=== PATIENT | male | born 1945 | race Caucasian/White ===

== ENCOUNTER 2017-06-02 20:30 | Outpatient (CLI) | payer MEDICARE | END 2017-06-02 20:31 | disposition home or self-care (01) | LOC: SLEEPLAB 20:30 | PROVIDERS: ATTEND Internal Medicine Pulmonary Disease | DX: G47.33 Obstructive sleep apnea (adult) (pediatric) (principal); E66.9 Obesity, unspecified; R06.83 Snoring; I25.10 Atherosclerotic heart disease of native coronary artery without angina pectoris; G47.00 Insomnia, unspecified | CPT/HCPCS: 95811 ==

== ENCOUNTER 2017-09-13 20:39 | Emergency (ER) | payer MEDICARE ==
[2017-09-13] MEDS ORDERED: Lidocaine 1% w/Epinephrine 1:100K 20 ML VIAL ONE (21:49)
== END 2017-09-13 22:20 | disposition home or self-care (01) ==
LOC: ERS 20:39
DX: L02.31 Cutaneous abscess of buttock (principal); I25.10 Atherosclerotic heart disease of native coronary artery without angina pectoris; I25.2 Old myocardial infarction; E78.5 Hyperlipidemia, unspecified; I10 Essential (primary) hypertension; F17.220 Nicotine dependence, chewing tobacco, uncomplicated; Z79.899 Other long term (current) drug therapy; Z79.82 Long term (current) use of aspirin
CPT/HCPCS: 10060; 87070; 87077; 87186; 87205; J2001

== ENCOUNTER 2017-09-15 16:30 | Emergency (ER) | payer MEDICARE | END 2017-09-15 17:50 | disposition home or self-care (01) | LOC: ERS 16:30 | DX: Z48.817 Encounter for surgical aftercare following surgery on the skin and subcutaneous tissue (principal); E78.5 Hyperlipidemia, unspecified; F17.220 Nicotine dependence, chewing tobacco, uncomplicated; I10 Essential (primary) hypertension; I25.10 Atherosclerotic heart disease of native coronary artery without angina pectoris; I25.2 Old myocardial infarction | CPT/HCPCS: 99282 ==

== ENCOUNTER 2018-06-12 12:03 | Emergency (ER) | payer MEDICARE ==
[2018-06-12] MEDS ORDERED: Adacel (T-DAP) 0.5 ML SYRINGE ONE (12:30)
== END 2018-06-12 12:59 | disposition home or self-care (01) ==
LOC: ERS 12:03
DX: L03.011 Cellulitis of right finger (principal); E78.5 Hyperlipidemia, unspecified; I10 Essential (primary) hypertension; F17.220 Nicotine dependence, chewing tobacco, uncomplicated; I25.10 Atherosclerotic heart disease of native coronary artery without angina pectoris; I25.2 Old myocardial infarction
CPT/HCPCS: 90471; 90715

== ENCOUNTER 2018-06-14 10:40 | Emergency (ER) | payer MEDICARE ==
[2018-06-14] MEDS ORDERED: Bacitracin Zinc 1 Packet ONE (11:37)
== END 2018-06-14 12:05 | disposition home or self-care (01) ==
LOC: ERS 10:40
DX: L03.011 Cellulitis of right finger (principal); I25.10 Atherosclerotic heart disease of native coronary artery without angina pectoris; I25.2 Old myocardial infarction; E78.5 Hyperlipidemia, unspecified; I10 Essential (primary) hypertension; F17.220 Nicotine dependence, chewing tobacco, uncomplicated
CPT/HCPCS: 26010

== ENCOUNTER 2018-08-03 19:13 | Inpatient (IN) | payer MEDICARE ==
[2018-08-03 19:58] LABS: Hemoglobin 13.2 g/dL (14.0-18.0); Mean Corpuscular HGB CONC 32.3 g/dL (32.0-36.0); Mean Corpuscular Hemoglobin 29.5 pg (27.0-31.0); Mean Corpuscular Volume 91.2 fL (78.0-98.0); Mean Platelet Volume 7.7 fL (7.4-10.4); Platelet Count 196 thou/uL (130-400); RBC Distribution Width 12.8 % (11.5-14.5); Red Blood Cell (RBC) Count 4.48 mill/uL (4.70-6.10); White Blood Cell (WBC) Count 29.6 thou/uL (4.8-10.8)
[2018-08-03 20:10] LABS: Band 18 % (5-11); Lymphocytes 7 % (21-51); MDiff Complete? YES; Monocytes 4 % (0-10); Neutrophil 71 % (42-75); Platelet Morphology Comment Appears Adequate; RBC Morphology Normal; Toxic Granulation SLIGHT; Vacuoles SLIGHT
--- NOTE | 2018-08-03 20:15 | RAD ---
FRadiograph chest one view: 08/03/2018 at 8:05 PM HISTORY: 73-year-old male with nausea and chest pain COMPARISON: 10/25/2014 FINDINGS: There is a new dense focal airspace opacity at the medial right lung base. Again noted are the sterno sameer wires. No cardiomegaly or pulmonary edema. No pneumothorax. IMPRESSION: Dense focal right lower lobe infiltrate is evidence for right lower lobe pneumonia.
[2018-08-03 20:16] LABS: ALT (SGPT) 21 U/L (8-55); AST (SGOT) 18 U/L (5-34); Albumin 3.6 g/dL (3.4-4.8); Alkaline Phosphatase 97 U/L (40-150); Anion Gap 14 mmol/L (10-20); BUN (Urea Nitrogen) 28 mg/dL (8.4-25.7); Bilirubin, Total 1.1 mg/dL (0.2-1.2); Calc. Creatinine Clearance 0 mL/min (70-130); Calcium 9.7 mg/dL (7.8-10.44); Carbon Dioxide 26 mmol/L (23-31); Chloride 95 mmol/L (98-107); Estimated GFR-MDRD 28; Glucose 138 mg/dL (83-110); Potassium 3.8 mmol/L (3.5-5.1); Protein, Total 7.6 g/dL (5.8-8.1); Sodium 131 mmol/L (136-145)
[2018-08-03 20:43] LABS: INR-International Normal Ratio 1.4; PTT 34.1 SEC (22.9-36.1); Prothrombin Time 17.6 SEC (12.0-14.7)
[2018-08-03 21:24] LABS: CKMB 1.5 ng/mL (0-6.6)
[2018-08-03] MEDS ORDERED: Azithromycin 500 MG VIAL ONE (21:41)
[2018-08-03] MEDS ORDERED: cefTRIAXone\\ROCEPHIN 2 GM VIAL ONE (21:41)
[2018-08-03] MEDS ORDERED: Sodium Chloride 0.9% 100 ML ONE (21:41)
[2018-08-03] MEDS: Sodium Chloride 0.9% 1,000 ML IV SCH (22:00)
[2018-08-03 22:22] LABS: Bilirubin Small (Negative); Blood, Urine Small (Negative); Clarity CLOUDY (Clear); Glucose, Urine (Dipstick) Negative (Negative); Leukocyte Negative (Negative); Nitrite Negative (Negative); Protein, Urine (Dipstick) 100 mg/dL (Neg-Trace); Specific Gravity, Urine 1.021 (1.002-1.036)
[2018-08-03] MEDS ORDERED: Aspirin Chewable 81 MG TAB ONE (22:22)
[2018-08-03 22:24] LABS: Pathc Cast-AUWi Flag 14.14 (0-2.49); RBC/HPF 0-3 HPF (0-3); Squamous Epithelial 0-3 HPF (0-3)
[2018-08-03 22:33] LABS: Other Casts/LPF 7-10 COARSE GRAN LPF (0-3 Hyaline)
[2018-08-03 22:34] LABS: Bacteria/HPF 1+ HPF (None Seen); Renal Epithelial 0-3 HPF (0-3)
[2018-08-03] MEDS ORDERED: Ondansetron PF 4 MG/2 ML Vial IVP PRN (22:49)
[2018-08-03] MEDS ORDERED: Bisacodyl 10 MG SUPP PR PRN (22:49)
[2018-08-03] MEDS ORDERED: Senokot S 8.6-50 MG TAB PO PRN (22:49)
[2018-08-03] MEDS ORDERED: Ondansetron ODT 4 MG TAB PO PRN (22:49)
[2018-08-03] MEDS ORDERED: Acetaminophen 325 MG TAB PO PRN (22:49)
[2018-08-03] MEDS ORDERED: HYDROcodone/Acetaminophen 5/325 mg Tablet PO PRN (22:49)
[2018-08-03 23:38] LABS: Critical Call Chem Troponin I RESULT DECREASING; Troponin I 0.745 ng/mL (< 0.028)
--- NOTE | 2018-08-04 01:52 | HP ---
PRIMARY CARE PHYSICIAN: Shravan Sheth MD. DATE OF SERVICE: 08/03/2018 REASON FOR ADMISSION: Sepsis, right lower lobe pneumonia, NSTEMI type 2, and [id number]-[id number] kidney failure. HISTORY OF PRESENT ILLNESS: A 73-year-old male who has underlying history of morbid obesity with sleep apnea, coronary artery disease required CABG, who presented to emergency room with complaint of nausea, vomiting, diarrhea, fever, and vague abdominal discomfort that lasted for only 1 day and subsequently diarrhea subsided. He was having cough productive of scant amount of sputum without any hemoptysis. He was also having some pleuritic discomfort, particularly on the right side and he was also pointing right-sided abdominal pain which was related with respiration. The patient was also feeling generalized weakness. He also fell down at home without any loss or incomplete consciousness. His condition was deteriorated and that is why he decided to go to emergency room for evaluation. When I saw this patient in the emergency room, the patient was hemodynamically stable, but he was having cough. He did not have any further nausea, vomiting, diarrhea since he arrived to ER. At home, he was having pleuritic chest discomfort, dizziness, and he fell down today. REVIEW OF SYSTEMS: CONSTITUTIONAL: Negative for weight loss or gain, ability to conduct usual activities. SKIN: Negative for rash, itching. EYES: Negative for double vision, pain. ENT/MOUTH: Negative for nose bleeding, neck stiffness, pain, tenderness. CARDIOVASCULAR: Negative for palpitations, dyspnea on exertion, orthopnea. RESPIRATORY: Negative for shortness of breath, wheezing, cough, hemoptysis, fever or night sweats. GASTROINTESTINAL: Negative for poor appetite, abdominal pain, heartburn, nausea , vomiting, constipation, or diarrhea. GENITOURINARY: Negative for urgency, frequency, dysuria, nocturia. MUSCULOSKELETAL: Negative for pain, swelling. NEUROLOGIC/PSYCHIATRIC: Negative for anxiety, depression. ALLERGY/IMMUNOLOGIC: Negative for skin rash, bleeding tendency. Please see my HPI for pertinent positives and negatives. All other review of systems reviewed and negative except as mentioned in HPI. ALLERGIES: NO KNOWN DRUG ALLERGIES. CURRENT HOME MEDICATIONS: The patient did not bring his home medication and he does not know the name of medication. PAST MEDICAL HISTORY: Morbid obesity, obstructive sleep apnea on CPAP, coronary artery disease with history of CABG, hypertension, and dyslipidemia. PAST SURGICAL HISTORY: CABG x3. PAST PSYCHIATRIC HISTORY: Reviewed and negative. SOCIAL HISTORY: The patient chews tobacco. He denies any smoking. He denies any alcohol abuse. He denies any other illicit drug abuse. FAMILY HISTORY: No family history of coronary artery disease, stroke, or cancer. EMERGENCY ROOM COURSE: The patient received Rocephin, azithromycin, 2 L IV fluid, and aspirin. PHYSICAL EXAMINATION: VITAL SIGNS: On arrival, blood pressure 100/66, pulse 86, respiratory rate 17, temperature 97.8, saturation 94% on room air. Weight 114.3 kg. GENERAL: The patient is currently alert, awake. No obvious acute distress. HEENT: Head; normocephalic, atraumatic. Eyes; pupils round, reactive to light. Extraocular muscle intact. ENT: Oropharynx within normal limits. Moist mucous membranes. No oral lesion. No pharyngeal erythema. No exudate. NECK: Supple. No JVD. No thyromegaly. No carotid bruit. LUNGS: Right lower lobe basal rales. No wheezing. No rhonchi. No accessory muscles of respiration in use. CARDIAC: S1, S2 regular without any significant murmur. ABDOMEN: Obesity present. Bowel sounds present. Nontender. Nondistended. No organomegaly. No mass. No suprapubic tenderness. BACK: Unremarkable. No CVA tenderness. EXTREMITIES: Upper extremity, passive movement of all joints are normal. Lower extremity, no edema. Good distal pulsation. No calf tenderness. SKIN: No skin rash. HEMATOLOGICAL SYSTEM: No lymphadenopathy. PSYCHIATRIC: Normal affect. SIGNIFICANT LABORATORY DATA: EKG showing premature ventricular complex. Chest x-ray based on my review, dense focal right lower lobe infiltrate consistent with right lower lobe pneumonia. CBC; WBC 29.6, hemoglobin 13.6, platelet 196 with bandemia. INR 1.4. BMP; sodium 131, potassium 3.8, chloride 95, BUN 28, creatinine 2.28, glucose 138, calcium 9.7. LFT; AST 18, ALT 21, alkaline phosphatase 97, albumin 3.6. CK 127, CK-MB 1.5, troponin 0.917. Urinalysis; 1+ bacteria, hyaline and granular cast. ASSESSMENT AND PLAN: 1. Sepsis with acute organ dysfunction. The patient has leukocytosis with bandemia. Source of infection is right lower lobe pneumonia. He has associated azkyp-wa-tggymer kidney failure and ubn-ZA-fuqujhsph myocardial infarction type 2. The patient is already given broad-spectrum antibiotic therapy for pneumonia. He will be given gentle IV fluid as well. He will be monitored on telemetry floor. 2. Gzxgh-ql-agojwxh kidney failure, baseline chronic kidney disease stage 3. Continue NS at 100 mL/h and repeat BMP tomorrow. Watch for any fluid overload status. 3. Yfq-LN-ooqdwplux myocardial infarction, type 2. The patient does not have any real anginal pain. His pain is a chest pain which is pleuritic related with pneumonia. His EKG is not showing any acute ischemic changes. Echocardiography will be obtained. Cardiology will be consulted and we will continue with aspirin 325 mg p.o. daily. 4. History of coronary artery disease with history of coronary artery bypass graft. As mentioned above, Cardiology is consulted. We will verify his home medication and resume while in hospital as tolerated. 5. Morbid obesity with obstructive sleep apnea. The patient will have continuous CPAP machine while sleep while in hospital. 6. Right lower lobe pneumonia. This patient has focal consolidation in right lower lobe. Based on appropriate clinical scenario, it is most likely infectious etiology. We will consult Pulmonary as well. He is already on Rocephin and levofloxacin based on renal dose. The patient will need repeat imaging. We will also check respiratory virus panel, Legionella urinary antigen test, and a Streptococcus pneumonia urinary antigen test. Blood culture is already obtained. 7. Deep venous thrombosis prophylaxis, heparin 5000 units subcu 3 times daily. 8. Gastrointestinal prophylaxis. Pepcid 20 mg p.o. daily. 9. Code status. The patient is full code. The patient does not have any surrogate decision maker. DISPOSITION PLAN: Based on clinical course, we are expecting the patient's stay in hospital more than 2 midnights. Plan of care discussed with the patient in detail. Job ID: [id number] [facility]
[2018-08-04 02:07] LABS: Hemoglobin 13.8 g/dL (14.0-18.0); Mean Corpuscular HGB CONC 32.3 g/dL (32.0-36.0); Mean Corpuscular Hemoglobin 29.2 pg (27.0-31.0); Mean Corpuscular Volume 90.3 fL (78.0-98.0); Platelet Count 173 thou/uL (130-400); RBC Distribution Width 12.8 % (11.5-14.5); Red Blood Cell (RBC) Count 4.72 mill/uL (4.70-6.10); White Blood Cell (WBC) Count 23.4 thou/uL (4.8-10.8)
[2018-08-04 02:24] LABS: Band 9 % (5-11); Lymphocytes 2 % (21-51); MDiff Complete? YES; Neutrophil 89 % (42-75); Platelet Morphology Comment Appears Adequate; RBC Morphology Normal
[2018-08-04 02:29] LABS: ALT (SGPT) 21 U/L (8-55); AST (SGOT) 16 U/L (5-34); Albumin 3.6 g/dL (3.4-4.8); Alkaline Phosphatase 100 U/L (40-150); Anion Gap 19 mmol/L (10-20); BUN (Urea Nitrogen) 30 mg/dL (8.4-25.7); Bilirubin, Total 0.8 mg/dL (0.2-1.2); Calc. Creatinine Clearance 0 mL/min (70-130); Calcium 9.2 mg/dL (7.8-10.44); Carbon Dioxide 21 mmol/L (23-31); Chloride 97 mmol/L (98-107); Critical Call Chem Troponin I RESULT DECREASING; Estimated GFR-MDRD 32; Glucose 120 mg/dL (83-110); Potassium 3.8 mmol/L (3.5-5.1); Protein, Total 7.6 g/dL (5.8-8.1); Sodium 133 mmol/L (136-145); Troponin I 0.623 ng/mL (< 0.028)
[2018-08-04] MEDS: Famotidine 20 MG TAB PO SCH (10:55)
[2018-08-04] MEDS: guaiFENesin ER 600 MG TAB PO SCH ×2 (10:55→20:14)
[2018-08-04] MEDS: Saccharomyces boulardii 250 MG CAP PO SCH (10:55)
[2018-08-04] MEDS: Aspirin 325 MG TAB PO SCH (10:56)
[2018-08-04] MEDS: Heparin 5,000 UNITS/ML VIAL SC SCH ×3 (10:57→20:14)
[2018-08-04] MEDS: Sodium Chloride 0.9% 1,000 ML IV SCH ×2 (10:57→20:11)
[2018-08-04 15:27] VITALS: BMI 37.2
[2018-08-04] MEDS: cefTRIAXone\\ROCEPHIN 1 GM in Sodium Chloride 0.9% 100 ML IVPB SCH (20:12)
--- NOTE | 2018-08-04 20:24 | PDOC.PN ---
- Subjective Encounter Start Date: 08/04/18 Encounter Start Time: 10:45 Patient seen and examined for Sepsis. Dry cough +. No new complaints. No overnight events - Objective Resuscitation Status - Order Detail: 08/03/18 22:43 Resuscitation Status Routine Resuscitation Status: FULL: Full Resuscitation MAR Reviewed: Yes Vital Signs & Weight: Vital Signs (12 hours) Temp Pulse Resp BP Pulse Ox 08/04/18 18:25 87 20 97 08/04/18 17:33 97 08/04/18 15:21 97.7 F 89 22 H 138/70 97 08/04/18 13:36 98 22 H 96 Weight Weight 245 lb Result Diagrams: 08/05/18 07:30 08/05/18 07:30 EKG Reviewed by me: Yes (Tele SR) Phys Exam - Physical Examination Constitutional: NAD Respiratory: no wheezing RLL improving Cardiovascular: RRR, no rub Gastrointestinal: soft, non-tender, positive bowel sounds Musculoskeletal: no edema Neurological: moves all 4 limbs Dx/Plan - Plan DVT proph w/SCDs 1. Sepsis with acute organ dysfunction due to Pneumonia ?Pneumococcal 2. KENNY on CKD 3 3. Type 2 PR 4. CAD s/p CABG 5. MYA 6. Obesity BMI 37.3 PLAN: Cont IV Ceftriaxone/Levaquin Cont ASA Cont current meds as below AM labs Review of Systems - Review of Systems Respiratory: Cough, Dry. negative: Shortness of Breath, Hemoptysis, SOB with Excertion, Pleuritic Pain, Sputum, Wheezing Cardiovascular: negative: chest pain, palpitations, orthopnea, paroxysmal nocturnal dyspnea, edema, light headedness, other Gastrointestinal: negative: Nausea, Vomiting, Abdominal Pain, Diarrhea, Constipation, Melena, Hematochezia, Other Genitourinary: negative: Dysuria, Frequency, Incontinence, Hematuria, Retention , Other - Medications/Allergies Allergies/Adverse Reactions: Allergies Allergy/AdvReac Type Severity Reaction Status Date / Time No Known Drug Allergies Allergy Verified 08/04/18 15:20 Medications: Current Medications Acetaminophen (Tylenol) 650 mg PO Q4H PRN PRN Reason: Headache/Fever/Mild Pain (1-3) Hydrocodone Bitart/Acetaminophen ([place] 5/325) 1 tab PO Q4H PRN PRN Reason: Moderate Pain (4-6) Albuterol/Ipratropium (Duoneb) 3 ml NEB [id number] [facility] Last Admin: 08/04/18 18:25 Dose: 3 ml Aspirin (Aspirin) 325 mg PO DAILY [facility] Last Admin: 08/04/18 10:56 Dose: 325 mg Bisacodyl (Dulcolax) 10 mg [place] DAILYPRN PRN PRN Reason: Constipation Famotidine (Pepcid) 20 mg PO DAILY [facility] Last Admin: 08/04/18 10:55 Dose: 20 mg Guaifenesin (Mucinex) 600 mg PO Q12HR [facility] Last Admin: 08/04/18 20:14 Dose: 600 mg Heparin Sodium (Porcine) (Heparin) 5,000 units SC TID [facility] Last Admin: 08/04/18 20:14 Dose: 5,000 units Levofloxacin 750 mg/ Device 150 mls @ 100 mls/hr IVPB Q2DAYS [facility] Last Admin: 08/04/18 02:22 Dose: 150 mls Ceftriaxone Sodium 1 gm/ (Sodium Chloride) 100 mls @ 200 mls/hr IVPB Q24HR [facility] Last Admin: 08/04/18 20:12 Dose: 100 mls Sodium Chloride (Normal Saline 0.9%) 1,000 mls @ 100 mls/hr IV .Q10H [facility] Last Admin: 08/04/18 20:11 Dose: Not Given Ondansetron HCl (Zofran Odt) 4 mg PO Q6H PRN PRN Reason: Nausea/Vomiting Ondansetron HCl (Zofran) 4 mg IVP Q6H PRN PRN Reason: Nausea/Vomiting Saccharomyces Boulardii (Florastor) 250 mg PO DAILY [facility] Last Admin: 08/04/18 10:55 Dose: 250 mg Senna/Docusate Sodium (Senokot S) 2 tab PO BIDPRN PRN PRN Reason: Constipation Sodium Chloride (Flush - Normal Saline) 10 ml IVF Q12HR [facility] Last Admin: 08/04/18 20:14 Dose: 10 ml Sodium Chloride (Flush - Normal Saline) 10 ml IVF PRN PRN PRN Reason: Saline Flush
--- NOTE | 2018-08-05 00:19 | CON ---
DATE OF CONSULTATION: HISTORY OF PRESENT ILLNESS: Min Amaya is a 73-year-old white male, patient of Dr. Mills. In 2007, he underwent CABG x3 with LEONARD to the LAD and saphenous vein graft to the intramyocardial ramus and the right acute marginal. In general, he has done well since that time. He was last seen by Dr. Mills in December 2017 and was asymptomatic. He now comes to the emergency room complaining of 2 to 3 days of nausea, vomiting, diarrhea, and fever. He also has had cough that is nonproductive. He became so weak at home that he fell down. He was found to have elevated white count and abnormal troponin I, is admitted for further evaluation. He denies any chest discomfort. PAST MEDICAL HISTORY: Obesity, obstructive sleep apnea, coronary artery disease, hypertension, hyperlipidemia. MEDICATIONS: 1. Atorvastatin 20 daily is the only medication listed. When he was last seen in the office, he was on, 1. Aspirin 81 daily. 2. Plavix 75 daily. 3. Irbesartan 150 daily. 4. Amlodipine 10 daily. 5. Triamterene/hydrochlorothiazide 37.5/25 daily. 6. Metoprolol 25 daily. 7. Hydralazine 10 mg b.i.d. ALLERGIES: NONE. SOCIAL HISTORY: He used to snuff. FAMILY HISTORY: Negative for coronary artery disease. REVIEW OF SYSTEMS: A 10-point review of systems is, otherwise, unremarkable. PHYSICAL EXAMINATION: VITAL SIGNS: Blood pressure 138/70, pulse of 89. HEENT: PERRL. NECK: Supple. CHEST: Clear. CARDIAC: S1 and S2 normal without any S3, S4, or murmurs. ABDOMEN: Normal bowel sounds without tenderness. Abdomen is obese. EXTREMITIES: Revealed no clubbing, cyanosis, or edema. NEUROLOGICAL: Grossly intact. LABORATORY DATA: EKG revealed normal sinus rhythm with PACs. No acute changes. On admission, white cells 29,600, hemoglobin 13.2, hematocrit 40.9, platelets 196,000, INR 1.4. Sodium 133, potassium 3.8, chloride 97, carbon dioxide 21, BUN 30, creatinine 2.07. Troponin I 0.917. CK-MB 1.5. Chest x-ray reveals right lower lobe infiltrate. IMPRESSION: 1. Sepsis with right lower lobe infiltrate. 2. Acute on chronic kidney disease. 3. Demand ischemia from renal insufficiency. 4. Status post coronary artery bypass graft x3. 5. Obesity. PLAN: The patient currently is being treated with antibiotics. Echocardiogram has been ordered. The last echocardiogram in the office revealed ejection fraction of 55% to 60% in November 2017. Job ID: [id number]
[2018-08-05] MEDS: Sodium Chloride 0.9% 1,000 ML IV SCH (04:59)
[2018-08-05 07:58] LABS: #Lymphocytes 1.6 thou/uL (1.20-3.40); #Monocytes 0.9 thou/uL (0.11-0.59); #Neutrophils 10.8 thou/uL (1.40-6.50); %Basophils 0.1 % (0.0-1.0); %Eosinophils 0.3 % (0.0-10.0); %Lymphocytes 11.8 % (21.0-51.0); %Monocytes 6.4 % (0.0-10.0); %Neutrophils 81.4 % (42.0-75.0); Hemoglobin 12.3 g/dL (14.0-18.0); Mean Corpuscular HGB CONC 31.6 g/dL (32.0-36.0); Mean Corpuscular Hemoglobin 28.8 pg (27.0-31.0); Mean Corpuscular Volume 91.2 fL (78.0-98.0); Mean Platelet Volume 8.2 fL (7.4-10.4); Platelet Count 207 thou/uL (130-400); RBC Distribution Width 12.9 % (11.5-14.5); Red Blood Cell (RBC) Count 4.26 mill/uL (4.70-6.10); White Blood Cell (WBC) Count 13.3 thou/uL (4.8-10.8)
[2018-08-05 08:10] LABS: Anion Gap 13 mmol/L (10-20); BUN (Urea Nitrogen) 31 mg/dL (8.4-25.7); Calc. Creatinine Clearance 70 mL/min (70-130); Calcium 8.8 mg/dL (7.8-10.44); Carbon Dioxide 23 mmol/L (23-31); Chloride 105 mmol/L (98-107); Estimated GFR-MDRD 45; Glucose 103 mg/dL (83-110); Potassium 3.5 mmol/L (3.5-5.1); Sodium 137 mmol/L (136-145)
--- NOTE | 2018-08-05 08:56 | PDOC.CTH ---
Cardiology Progress Note - Subjective Feels much better. Fells like he is back to BL - Objective Vital Signs Temp Pulse Resp BP BP Pulse Ox 08/05/18 07:33 97.9 F 87 20 141/67 H 95 08/05/18 07:15 80 20 92 L 08/05/18 04:00 97.7 F 86 18 109/54 L 95 08/04/18 23:04 99 24 H 96 Weight 245 lb 08/04/18 08/05/18 08/06/18 06:59 06:59 06:59 Intake Total 1346 Output Total 650 Balance 696 - Physical Examination General/Neuro: alert & oriented x3, NAD Lungs: CTA, unlabored respirations Heart: PMI normal, RRR Abdomen: NT/ND, soft Extremities: + femoral B - Labs Result Diagrams: 08/05/18 07:30 08/05/18 07:30 Troponin/CKMB CK-MB (CK-2) 1.5 ng/mL (0-6.6) 08/03/18 19:46 Troponin I 0.623 ng/mL (< 0.028) H* 08/04/18 01:57 - Assessment/Plan Type II MO CAD s/p CABG Sepsis RI Pt doing well. No cv complaints.
--- NOTE | 2018-08-05 08:59 | PDOC.CTH ---
Cardiology Progress Note - Subjective Pt doing well. No complaints. Feels back to BL - Objective Vital Signs Temp Pulse Resp BP BP Pulse Ox 08/05/18 07:33 97.9 F 87 20 141/67 H 95 08/05/18 07:15 80 20 92 L 08/05/18 04:00 97.7 F 86 18 109/54 L 95 08/04/18 23:04 99 24 H 96 Weight 245 lb 08/04/18 08/05/18 08/06/18 06:59 06:59 06:59 Intake Total 1346 Output Total 650 Balance 696 - Physical Examination General/Neuro: alert & oriented x3, NAD Neck: carotid US brisk, no JVD present Lungs: CTA, unlabored respirations Heart: PMI normal, RRR Abdomen: NT/ND, soft Extremities: + femoral B - Telemetry Telemetry Rhythm: RRR - Labs Result Diagrams: 08/05/18 07:30 08/05/18 07:30 Troponin/CKMB CK-MB (CK-2) 1.5 ng/mL (0-6.6) 08/03/18 19:46 Troponin I 0.623 ng/mL (< 0.028) H* 08/04/18 01:57 - Assessment/Plan Type II [place] Sepsis RI CAD s/p CABG Treat conservatively Increase troponin secondary to volume contraction, RI and recent infection Stop heparin On ASA Add BB, statin Continue Abx Fu with me in office in 3-4 weeks
[2018-08-05] MEDS ORDERED: Aspirin 325 MG TAB PO SCH (09:00)
[2018-08-05] MEDS: Saccharomyces boulardii 250 MG CAP PO SCH ×2 (09:33→09:37)
[2018-08-05] MEDS: Aspirin 325 MG TAB PO SCH (09:33)
[2018-08-05] MEDS: guaiFENesin ER 600 MG TAB PO SCH ×2 (09:37→21:30)
[2018-08-05] MEDS: Clopidogrel Bisulfate 75 MG TAB PO SCH (09:37)
[2018-08-05] MEDS: Aspirin Chewable 81 MG TAB PO SCH (09:37)
[2018-08-05] MEDS: Famotidine 20 MG TAB PO SCH (09:37)
[2018-08-05] MEDS: hydrALAZINE 10 MG TAB PO SCH ×2 (11:13→21:30)
--- NOTE | 2018-08-05 12:12 | PDOC.PN ---
- Subjective Encounter Start Date: 08/05/18 Encounter Start Time: 10:40 Patient seen and examined for Sepsis. Feeling better. No CP. No new complaints. No overnight events - Objective Resuscitation Status - Order Detail: 08/03/18 22:43 Resuscitation Status Routine Resuscitation Status: FULL: Full Resuscitation MAR Reviewed: Yes Vital Signs & Weight: Vital Signs (12 hours) Temp Pulse Resp BP BP Pulse Ox 08/05/18 11:10 98.6 F 82 16 132/63 94 L 08/05/18 07:33 97.9 F 87 20 141/67 H 95 08/05/18 07:15 80 20 92 L 08/05/18 04:00 97.7 F 86 18 109/54 L 95 Weight Admit Weight 245 lb Weight 245 lb I&O: 08/04/18 08/05/18 08/06/18 06:59 06:59 06:59 Intake Total 1346 Output Total 650 Balance 696 Result Diagrams: 08/05/18 07:30 08/05/18 07:30 EKG Reviewed by me: Yes (Tele SR) Phys Exam - Physical Examination Constitutional: NAD Respiratory: no wheezing Rales/rhonchi at Rt base Cardiovascular: RRR, no rub Gastrointestinal: soft, non-tender, positive bowel sounds Musculoskeletal: no edema Neurological: moves all 4 limbs Dx/Plan - Plan DVT proph w/SCDs 1. Sepsis with acute organ dysfunction due to Pneumonia ?Pneumococcal 2. KENNY on CKD 3 3. Type 2 AR 4. CAD s/p CABG 5. MYA 6. Obesity BMI 37.3 PLAN: Cont IV Ceftriaxone/Levaquin Home meds reviewed and started Cont ASA/Plavix/Toprol/Statins Resume ARB DC IVF Resume Amlodipine in 1-2 days Cont other meds as below AM labs Ambulate Review of Systems - Review of Systems Respiratory: Cough. negative: Dry, Shortness of Breath, Hemoptysis, SOB with Excertion, Pleuritic Pain, Sputum, Wheezing Cardiovascular: negative: chest pain, palpitations, orthopnea, paroxysmal nocturnal dyspnea, edema, light headedness, other Gastrointestinal: negative: Nausea, Vomiting, Abdominal Pain, Diarrhea, Constipation, Melena, Hematochezia, Other - Medications/Allergies Allergies/Adverse Reactions: Allergies Allergy/AdvReac Type Severity Reaction Status Date / Time No Known Drug Allergies Allergy Verified 08/04/18 15:20 Medications: Current Medications Acetaminophen (Tylenol) 650 mg PO Q4H PRN PRN Reason: Headache/Fever/Mild Pain (1-3) Hydrocodone Bitart/Acetaminophen ([place] 5/325) 1 tab PO Q4H PRN PRN Reason: Moderate Pain (4-6) Albuterol/Ipratropium (Duoneb) 3 ml NEB [id number] [facility] Last Admin: 08/05/18 07:15 Dose: 3 ml Aspirin (Aspirin Chewable) 81 mg PO DAILY [facility] Last Admin: 08/05/18 09:37 Dose: 81 mg Atorvastatin Calcium (Lipitor) 20 mg PO HS [facility] Bisacodyl (Dulcolax) 10 mg [place] DAILYPRN PRN PRN Reason: Constipation Clopidogrel Bisulfate (Plavix) 75 mg PO DAILY [facility] Last Admin: 08/05/18 09:37 Dose: 75 mg Famotidine (Pepcid) 20 mg PO DAILY [facility] Last Admin: 08/05/18 09:37 Dose: 20 mg Guaifenesin (Mucinex) 600 mg PO Q12HR [facility] Last Admin: 08/05/18 09:37 Dose: 600 mg Hydralazine HCl (Apresoline) 10 mg PO BID [facility] Last Admin: 08/05/18 11:13 Dose: 10 mg Levofloxacin 750 mg/ Device 150 mls @ 100 mls/hr IVPB Q2DAYS [facility] Last Admin: 08/04/18 02:22 Dose: 150 mls Ceftriaxone Sodium 1 gm/ (Sodium Chloride) 100 mls @ 200 mls/hr IVPB Q24HR [facility] Last Admin: 08/04/18 20:12 Dose: 100 mls Irbesartan (Avapro) 150 mg PO DAILY [facility] Last Admin: 08/05/18 11:12 Dose: 150 mg Metoprolol Succinate (Toprol Xl) 25 mg PO DAILY [facility] Last Admin: 08/05/18 09:37 Dose: 25 mg Ondansetron HCl (Zofran Odt) 4 mg PO Q6H PRN PRN Reason: Nausea/Vomiting Ondansetron HCl (Zofran) 4 mg IVP Q6H PRN PRN Reason: Nausea/Vomiting Saccharomyces Boulardii (Florastor) 250 mg PO DAILY [facility] Last Admin: 08/05/18 09:37 Dose: 250 mg Senna/Docusate Sodium (Senokot S) 2 tab PO BIDPRN PRN PRN Reason: Constipation Sodium Chloride (Flush - Normal Saline) 10 ml IVF Q12HR [facility] Last Admin: 08/05/18 09:37 Dose: 10 ml Sodium Chloride (Flush - Normal Saline) 10 ml IVF PRN PRN PRN Reason: Saline Flush
[2018-08-05] MEDS ORDERED: Atorvastatin Calcium 20 MG TAB PO SCH (21:00)
[2018-08-05] MEDS: cefTRIAXone\\ROCEPHIN 1 GM in Sodium Chloride 0.9% 100 ML IVPB SCH (21:35)
[2018-08-06 06:53] LABS: #Eosinphils 0.1 thou/uL (0.0-0.7); #Lymphocytes 1.3 thou/uL (1.20-3.40); #Monocytes 0.7 thou/uL (0.11-0.59); #Neutrophils 7.6 thou/uL (1.40-6.50); %Basophils 0.2 % (0.0-1.0); %Eosinophils 1.4 % (0.0-10.0); %Lymphocytes 13.7 % (21.0-51.0); %Monocytes 7.1 % (0.0-10.0); %Neutrophils 77.6 % (42.0-75.0); Hemoglobin 11.4 g/dL (14.0-18.0); Mean Corpuscular HGB CONC 32.3 g/dL (32.0-36.0); Mean Corpuscular Hemoglobin 29.5 pg (27.0-31.0); Mean Corpuscular Volume 91.3 fL (78.0-98.0); Mean Platelet Volume 7.4 fL (7.4-10.4); Platelet Count 198 thou/uL (130-400); Red Blood Cell (RBC) Count 3.86 mill/uL (4.70-6.10); White Blood Cell (WBC) Count 9.8 thou/uL (4.8-10.8)
[2018-08-06 07:04] LABS: Anion Gap 14 mmol/L (10-20); BUN (Urea Nitrogen) 25 mg/dL (8.4-25.7); Calc. Creatinine Clearance 76 mL/min (70-130); Calcium 8.9 mg/dL (7.8-10.44); Carbon Dioxide 22 mmol/L (23-31); Chloride 108 mmol/L (98-107); Estimated GFR-MDRD 50; Glucose 97 mg/dL (83-110); Magnesium 2.1 mg/dL (1.6-2.6); Potassium 3.8 mmol/L (3.5-5.1); Sodium 140 mmol/L (136-145)
[2018-08-06] MEDS: Saccharomyces boulardii 250 MG CAP PO SCH (09:40)
[2018-08-06] MEDS: hydrALAZINE 10 MG TAB PO SCH (09:41)
[2018-08-06] MEDS: Famotidine 20 MG TAB PO SCH (09:43)
[2018-08-06] MEDS: Clopidogrel Bisulfate 75 MG TAB PO SCH (09:44)
[2018-08-06] MEDS: Aspirin Chewable 81 MG TAB PO SCH (09:44)
[2018-08-06] MEDS: guaiFENesin ER 600 MG TAB PO SCH (09:44)
[2018-08-06 09:59] VITALS: TEMP 98.2
--- NOTE | 2018-08-06 12:43 | DIS ---
DATE OF ADMISSION: 08/03/2018 DATE OF DISCHARGE: 08/06/2018 PRIMARY CARE PHYSICIAN: Shravan Sheth MD. DISCHARGE DISPOSITION: Home. PRIMARY DISCHARGE DIAGNOSES: 1. Sepsis with acute organ dysfunction. 2. Type [address] without any ST elevation. 3. Right lower lobe pneumonia. 4. Jqwew-lg-jnbzbcn kidney failure, baseline chronic kidney disease, stage 3. SECONDARY DISCHARGE DIAGNOSES: 1. Obesity with BMI of 37. 2. Obstructive sleep apnea. 3. Hypertension. 4. Dyslipidemia. 5. Coronary artery disease. 6. Diabetes type 2. PRIMARY PROCEDURE/OPERATION: None. RADIOLOGICAL INVESTIGATION: Chest x-ray showed right lower lobe pneumonia. Echocardiography showed normal EF. SIGNIFICANT LABORATORY DATA: Hemoglobin 11.4, INR 1.4, creatinine 1.39, troponin 0.623. Urinalysis, unremarkable. DISCHARGE MEDICATION: 1. Norvasc 10 mg daily. 2. Aspirin 81 mg daily. 3. Lipitor 20 mg at bedtime. 4. Plavix 75 mg p.o. daily. 5. Hydralazine 10 mg b.i.d. 6. Irbesartan 150 mg daily. 7. Toprol-XL 25 mg p.o. at bedtime. 8. Triamterene with hydrochlorothiazide 1 tablet daily. 9. Mucinex 600 mg twice daily for 7 days. 10. Levaquin 500 mg p.o. daily for 7 days. CONTRAINDICATION: None. CODE STATUS: Full code. INPATIENT CONSULTANTS: Cardiology group was consulted while in hospital. TEST RESULTS PENDING ON DISCHARGE: None. ALLERGIES: NO KNOWN DRUG ALLERGIES. DISCHARGE PLAN: Posthospital, the patient will follow up with primary care physician. The patient will have repeat chest x-ray in four weeks. HOSPITAL COURSE: A 73-year-old male, who was admitted by me. Please see my HPI for further details. The patient was having respiratory symptoms. On admission, his chest x-ray showed right lower lobe pneumonia. The patient was also having yrxne-uf-ebplyrb kidney failure as well as significantly elevated troponin, though this patient was not complaining with anginal pain. His troponin was attributed to be due to sepsis and type 2 [id number] MD. His sepsis completely improved with Levaquin and Rocephin therapy. The patient was on room air. He was tolerating p.o. well, ambulatory. The patient expressed his wish to go home today. I have seen and examined the patient at bedside today. He will resume all his previous home medication. I started Levaquin p.o. for another 7 days. The patient is advised to avoid NSAIDs. Physical examination is normal. The patient is medically stable for discharge later on today. I have seen and examined the patient bedside personally. Job ID: [id number]
--- NOTE | 2018-08-06 13:21 | PDOC.PN ---
- Subjective Encounter Start Date: 08/06/18 Encounter Start Time: 10:10 -: old records requested/rev Patient seen and examined. No new complaints. No overnight events - Objective Resuscitation Status - Order Detail: 08/03/18 22:43 Resuscitation Status Routine Resuscitation Status: FULL: Full Resuscitation MAR Reviewed: Yes Vital Signs & Weight: Vital Signs (12 hours) Temp Pulse Resp BP BP BP Pulse Ox 08/06/18 09:41 81 151/75 H 08/06/18 08:00 98.2 F 81 18 151/95 H 96 08/06/18 07:15 91 16 93 L 08/06/18 04:00 98.5 F 85 20 129/59 L 95 Weight Admit Weight 245 lb Weight 244 lb 3.2 oz I&O: 08/05/18 08/06/18 08/07/18 06:59 06:59 06:59 Intake Total 1346 3245 Output Total 650 2450 Balance 696 795 Result Diagrams: 08/06/18 06:39 08/06/18 06:38 Phys Exam - Physical Examination Constitutional: NAD HEENT: PERRLA, moist MMs, sclera anicteric Neck: no JVD, supple Respiratory: no wheezing, no rales, no rhonchi Cardiovascular: RRR, no significant murmur, no rub Gastrointestinal: soft, non-tender, no distention, positive bowel sounds Musculoskeletal: no edema, pulses present Neurological: non-focal, normal sensation, moves all 4 limbs Lymphatic: no nodes Psychiatric: normal affect, A&O x 3 Skin: no rash, normal turgor Dx/Plan (1) Right lower lobe pneumonia Code(s): J18.1 - LOBAR PNEUMONIA, UNSPECIFIED ORGANISM Status: Acute (2) Sepsis with acute organ dysfunction Code(s): A41.9 - SEPSIS, UNSPECIFIED ORGANISM; R65.20 - SEVERE SEPSIS WITHOUT SEPTIC SHOCK Status: Acute (3) Type [address] elevation Code(s): I21.A1 - MYOCARDIAL INFARCTION TYPE 2 Status: Acute (4) CAD (coronary artery disease) Code(s): I25.10 - ATHSCL HEART DISEASE OF [place] CORONARY ARTERY W/O ANG PCTRS Status: Chronic (5) Dyslipidemia Code(s): E78.5 - HYPERLIPIDEMIA, UNSPECIFIED Status: Chronic (6) Hypertension Code(s): I10 - ESSENTIAL (PRIMARY) HYPERTENSION Status: Chronic (7) MYA (obstructive sleep apnea) Code(s): G47.33 - OBSTRUCTIVE SLEEP APNEA (ADULT) (PEDIATRIC) Status: Chronic (8) Obesity (BMI 30-39.9) Code(s): E66.9 - OBESITY, UNSPECIFIED Status: Chronic - Plan cont current plan of care, continue antibiotics * medication reviewed as below * symptomatic treatment * see discharge gilberty. Review of Systems - Review of Systems ENT: negative: Ear Pain, Ear Discharge, Nose Pain, Nose Discharge, Nose Congestion, Mouth Pain, Mouth Swelling, Throat Pain, Throat Swelling, Other Respiratory: negative: Cough, Dry, Shortness of Breath, Hemoptysis, SOB with Excertion, Pleuritic Pain, Sputum, Wheezing Cardiovascular: negative: chest pain, palpitations, orthopnea, paroxysmal nocturnal dyspnea, edema, light headedness, other Gastrointestinal: negative: Nausea, Vomiting, Abdominal Pain, Diarrhea, Constipation, Melena, Hematochezia, Other Genitourinary: negative: Dysuria, Frequency, Incontinence, Hematuria, Retention , Other Musculoskeletal: negative: Neck Pain, Shoulder Pain, Arm Pain, Back Pain, Hand Pain, Leg Pain, Foot Pain, Other Skin: negative: Rash, Lesions, Hola, Bruising, Other - Medications/Allergies Allergies/Adverse Reactions: Allergies Allergy/AdvReac Type Severity Reaction Status Date / Time No Known Drug Allergies Allergy Verified 08/04/18 15:20 Medications: Current Medications Acetaminophen (Tylenol) 650 mg PO Q4H PRN PRN Reason: Headache/Fever/Mild Pain (1-3) Hydrocodone Bitart/Acetaminophen (Concrete 5/325) 1 tab PO Q4H PRN PRN Reason: Moderate Pain (4-6) Albuterol/Ipratropium (Duoneb) 3 ml NEB [id number] [facility] Last Admin: 08/06/18 11:42 Dose: Not Given Aspirin (Aspirin Chewable) 81 mg PO DAILY [facility] Last Admin: 08/06/18 09:44 Dose: 81 mg Atorvastatin Calcium (Lipitor) 20 mg PO HS [facility] Last Admin: 08/05/18 21:30 Dose: 20 mg Bisacodyl (Dulcolax) 10 mg IN DAILYPRN PRN PRN Reason: Constipation Clopidogrel Bisulfate (Plavix) 75 mg PO DAILY [facility] Last Admin: 08/06/18 09:44 Dose: 75 mg Famotidine (Pepcid) 20 mg PO DAILY [facility] Last Admin: 08/06/18 09:43 Dose: 20 mg Guaifenesin (Mucinex) 600 mg PO Q12HR [facility] Last Admin: 08/06/18 09:44 Dose: 600 mg Hydralazine HCl (Apresoline) 10 mg PO BID [facility] Last Admin: 08/06/18 09:41 Dose: 10 mg Levofloxacin 750 mg/ Device 150 mls @ 100 mls/hr IVPB Q2DAYS [facility] Last Admin: 08/05/18 22:15 Dose: 150 mls Ceftriaxone Sodium 1 gm/ (Sodium Chloride) 100 mls @ 200 mls/hr IVPB Q24HR [facility] Last Admin: 08/05/18 21:35 Dose: 100 mls Irbesartan (Avapro) 150 mg PO DAILY [facility] Last Admin: 08/06/18 09:43 Dose: 150 mg Metoprolol Succinate (Toprol Xl) 25 mg PO DAILY [facility] Last Admin: 08/06/18 09:43 Dose: 25 mg Ondansetron HCl (Zofran Odt) 4 mg PO Q6H PRN PRN Reason: Nausea/Vomiting Ondansetron HCl (Zofran) 4 mg IVP Q6H PRN PRN Reason: Nausea/Vomiting Saccharomyces Boulardii (Florastor) 250 mg PO DAILY [facility] Last Admin: 08/06/18 09:40 Dose: 250 mg Senna/Docusate Sodium (Senokot S) 2 tab PO BIDPRN PRN PRN Reason: Constipation Sodium Chloride (Flush - Normal Saline) 10 ml IVF Q12HR [facility] Last Admin: 08/06/18 09:44 Dose: 10 ml Sodium Chloride (Flush - Normal Saline) 10 ml IVF PRN PRN PRN Reason: Saline Flush
[2018-08-06 17:02] VITALS: BP 159/77
== END 2018-08-06 17:30 | disposition home or self-care (01) | DRG 871 ==
LOC: ERS 19:13 → ERHOLD 22:15 → 2NO 08-04 15:33
PROVIDERS: ADMIT Internal Medicine; ATTEND Internal Medicine
DX: A41.9 Sepsis, unspecified organism (principal); J18.1 Lobar pneumonia, unspecified organism; I21.A1 Myocardial infarction type 2; N17.9 Acute kidney failure, unspecified; E66.01 Morbid (severe) obesity due to excess calories; G47.33 Obstructive sleep apnea (adult) (pediatric); I25.10 Atherosclerotic heart disease of native coronary artery without angina pectoris; E78.5 Hyperlipidemia, unspecified; E11.22 Type 2 diabetes mellitus with diabetic chronic kidney disease; I12.9 Hypertensive chronic kidney disease with stage 1 through stage 4 chronic kidney disease, or unspecified chronic kidney disease; N18.3 Chronic kidney disease, stage 3 (moderate); Z68.37 Body mass index [BMI] 37.0-37.9, adult; Z95.1 Presence of aortocoronary bypass graft; Z79.82 Long term (current) use of aspirin; Z79.899 Other long term (current) drug therapy
CPT/HCPCS: 36415; 71045; 80048; 80053; 81003; 81015; 82550; 82553; 83735; 84484; 85025; 85610; 85730; 87040; 93005; 93306; 94640; 94760; J0456; J0696; J1644; J1956; J7050; J7620